=== PATIENT | female | born 1990 | race African-American/Black ===

== ENCOUNTER 2023-04-07 04:35 | Inpatient (IN) | payer BC ==
[2023-04-07] MEDS: ELECTROLYTE-148 SOLN 1,000 ML IV SCH (05:30)
[2023-04-07] MEDS ORDERED: OXYTOCIN 20 UNITS in 0.9% NS 20 UNIT/1,000 ML INFUS.BAG IV ONE (05:50)
[2023-04-07 05:53] VITALS: BMI 34.7
[2023-04-07 06:04] LABS: BASO % 0.1 % (0-2.0); HEMATOCRIT 41.1 % (32.4-45.2); HEMOGLOBIN 13.5 GM/dL (10.7-15.3); LYMPH % 5.9 % (8-40); MCH 27.6 pg (25.7-33.7); MCHC 32.8 g/dl (32.0-36.0); MEAN CELL VOLUME 84.3 fl (80-96); MEAN PLT VOLUME 9.2 fl (7.5-11.1); MONO % 5.2 % (3.8-10.2); NEUT % 88.8 % (42.8-82.8); PLATELET COUNT 230 10^3/uL (134-434); RBC 4.88 M/mm3 (3.60-5.2); RDW 15.7 % (11.6-15.6); WHITE BLOOD COUNT 15.7 K/mm3 (4.0-10.0)
[2023-04-07] MEDS: OXYTOCIN 30 UNITS in 0.9% NS 30 UNIT/500 ML INFUS.BAG IVPB SCH (06:18)
[2023-04-07 06:30] LABS: INR 1.03 (0.83-1.09); POTASSIUM 4.4 mmol/L (3.5-5.1); PROTHROMBIN TIME (PATIENT) 11.9 SEC (9.7-13.0)
[2023-04-07 06:31] LABS: CALCIUM 10.3 mg/dL (8.5-10.1)
[2023-04-07 06:33] LABS: ACTIVATED PTT 28.4 SECONDS (25.2-36.5)
[2023-04-07 06:35] LABS: CREATININE 0.5 mg/dL (0.55-1.3)
[2023-04-07] MEDS ORDERED: METHYLERGONOVINE MALEATE 0.2 MG/1 ML AMP IM PRN (10:59)
[2023-04-07] MEDS ORDERED: IBUPROFEN 600 MG TABLET (FP) PO PRN (10:59)
[2023-04-07] MEDS ORDERED: BENZOCAINE 28 GM HEMORRHOIDAL OINTMENT TP PRN (10:59)
[2023-04-07] MEDS ORDERED: WITCH HAZEL 50% (TUCKS) 40 PAD/JAR PAD TP PRN (10:59)
[2023-04-07] MEDS ORDERED: BISACODYL 10 MG SUPP.RECT RC PRN (10:59)
[2023-04-07] MEDS ORDERED: ACETAMINOPHEN 325 MG TABLET (FP) PO PRN (10:59)
[2023-04-07] MEDS ORDERED: OXYTOCIN 20 UNITS in 0.9% NS 20 UNIT/1,000 ML INFUS.BAG IV SCH (11:00)
[2023-04-07] MEDS ORDERED: BENZOCAINE 20% 57 GM BOTTLE TP SCH (11:00)
[2023-04-07 12:13] VITALS: RESP 18
[2023-04-08 02:50] LABS: URINE BARBITURATES NEGATIVE (NEGATIVE)
[2023-04-08 02:51] LABS: METHADONE, UR NEGATIVE (NEGATIVE); OPIATES, URI NEGATIVE (NEGATIVE); PHENCYCLIDINE,URINE NEGATIVE (NEGATIVE); URINE BENZODIAZEPINES NEGATIVE (NEGATIVE)
[2023-04-08 03:03] LABS: COCAINE, UR NEGATIVE (NEGATIVE); URINE AMPHETAMINES NEGATIVE (NEGATIVE)
[2023-04-08 08:43] LABS: BASO % 0.2 % (0-2.0); EOS % 0.5 % (0-4.5); HEMATOCRIT 34.3 % (32.4-45.2); HEMOGLOBIN 11.2 GM/dL (10.7-15.3); LYMPH % 19.3 % (8-40); MCH 27.8 pg (25.7-33.7); MCHC 32.8 g/dl (32.0-36.0); MEAN CELL VOLUME 84.9 fl (80-96); MEAN PLT VOLUME 9.2 fl (7.5-11.1); MONO % 8.4 % (3.8-10.2); NEUT % 71.6 % (42.8-82.8); PLATELET COUNT 186 10^3/uL (134-434); RBC 4.04 M/mm3 (3.60-5.2); RDW 15.7 % (11.6-15.6); WHITE BLOOD COUNT 11.3 K/mm3 (4.0-10.0)
[2023-04-08] MEDS: PRENATAL VITAMINS W/ FOLIC ACID TABLET (FP) PO SCH (09:10)
[2023-04-08] MEDS: ELECTROLYTE-148 SOLN 1,000 ML IV SCH (09:12)
[2023-04-08] MEDS: OXYTOCIN 30 UNITS in 0.9% NS 30 UNIT/500 ML INFUS.BAG IVPB SCH (09:12)
[2023-04-08] MEDS ORDERED: SENNOSIDES/DOCUSATE COMBO (SENNA PLUS) TABLET (UD) PO PRN (22:00)
[2023-04-09] MEDS: PRENATAL VITAMINS W/ FOLIC ACID TABLET (FP) PO SCH (09:40)
[2023-04-09 10:32] VITALS: BP 119/79; PULSE 81; TEMP 98
== END 2023-04-09 14:45 | disposition home or self-care (01) | DRG 807 ==
LOC: JLDR 04:35 → J3W 11:40
PROVIDERS: ADMIT Obstetrics & Gynecology; ATTEND Obstetrics & Gynecology
PROC: 10E0XZZ Delivery of Products of Conception, External Approach (ICD-10-PCS; principal; 2023-04-07)
PROC: 0HQ9XZZ Repair Perineum Skin, External Approach (ICD-10-PCS; 2023-04-07)
DX: O70.0 First degree perineal laceration during delivery (principal); Z37.0 Single live birth; Z3A.41 41 weeks gestation of pregnancy
CPT/HCPCS: 36415; 80048; 80307; 85025; 85461; 85610; 85730; 86780; 86850; 86870; 86880; 86900; 86901; 86902